=== PATIENT | female | born 1965 | race Caucasian/White ===

== ENCOUNTER 2019-12-10 05:49 | Inpatient (IN) | payer BC ==
[2019-12-10] MEDS ORDERED: CELECOXIB 200 MG CAPSULE PO ONE (06:18)
[2019-12-10] MEDS ORDERED: TRANEXAMIC ACID 1000 MG/10 ML VIAL IVPUSH ONE (06:18)
[2019-12-10] MEDS ORDERED: CEFAZOLIN 2 GM in DEXTROSE 5%-WATER - 50 ML IVPB ONE (06:18)
[2019-12-10 06:57] VITALS: BMI 25.7
[2019-12-10] MEDS ORDERED: MIDAZOLAM HCL 2 MG/2 ML SINGLE DOSE VIAL ONE ×3 (07:05→08:42)
[2019-12-10] MEDS ORDERED: DEXAMETHASONE SOD PHOSPHATE/PF 10 MG/ML SDV ONE (07:05)
[2019-12-10] MEDS ORDERED: BUPIVACAINE HCL/PF 0.5% (5 MG/ML) 30 ML VIAL IJ ONE (07:05)
[2019-12-10] MEDS ORDERED: SUCCINYLCHOLINE CHLORIDE 200 MG/10 ML SYRINGE ONE (07:15)
[2019-12-10] MEDS ORDERED: VANCOMYCIN 1,000 MG VIAL (RESTRICTED TO ID ONLY) ONE (07:17)
[2019-12-10] MEDS ORDERED: ceFAZolin SODIUM 1 GM VIAL ONE ×2 (07:17→08:18)
[2019-12-10] MEDS ORDERED: BUPIVACAINE HCL/PF 0.5% (5MG/ML) 10 ML VIAL ONE (07:22)
[2019-12-10 07:24] LABS: CALCIUM 9.4 mg/dl (8.5-10); CREATININE 0.7 mg/dl (0.55-1.3); POTASSIUM 3.9 mmol/L (3.5-5.1)
[2019-12-10] MEDS ORDERED: MAGNESIUM HYDROX 2400MG/30ML ORAL SUSPENSION 30 ML CUP PO PRN (07:50)
[2019-12-10] MEDS ORDERED: MAG HYDROX/AL HYDROX/SIMETH 30 ML UNIT-DOSE CUP PO PRN (07:50)
[2019-12-10] MEDS ORDERED: ONDANSETRON 4 MG/2 ML VIAL IVPUSH PRN (07:50)
[2019-12-10] MEDS ORDERED: EPINEPHrine/PF 1 MG/1 ML (1:1,000) AMPULE ONE (07:58)
[2019-12-10] MEDS ORDERED: LACTATED RINGERS SOLUTION 1,000 ML IV SCH (08:00)
[2019-12-10] MEDS ORDERED: DEXAMETHASONE SOD PHOSPHATE 4 MG/1 ML VIAL ONE (08:16)
[2019-12-10] MEDS ORDERED: PROPOFOL 20 ML ONE ×2 (08:26→09:03)
--- NOTE | 2019-12-10 09:33 | HP ---
Satellite [facility] - Chief Complaint Chief Complaint: left hip pain - Past Medical History Allergies/Adverse Reactions: Allergies Allergy/AdvReac Type Severity Reaction Status Date / Time No Known Allergies Allergy Verified 12/03/19 15:34 ...LMP: 12/08/19 - Current Medications Current Medications: Home Medications Medication Instructions Recorded Hydrochlorothiazide [Hctz -] 25 mg PO HS 12/03/19 Losartan Potassium 50 mg PO HS 12/03/19 Rosuvastatin [Crestor -] 10 mg PO HS 12/03/19 Magnesium Oxide [Magnesium] 400 mg PO BID 12/10/19 Potassium Chloride [K-Dur -] 20 meq PO BID 12/10/19 Satellite Physical Exam - Physical Examination Vital Signs: Vital Signs Period Temp Pulse Resp BP Sys/Brunson Pulse Ox Last 24 Hr 98.5 F 94 16 151/74 General Appearance: Well Nourished, Well Developed, Alert & Oriented x3 ENT: Clear Lung: Normal air movement Extremities: Other (left hip- + ttp, decr rom, nvi, MRI + avn) Neurological: Intact, Alert, Oriented Satellite Impression/Plan - Impression/Plan Impression: left hip avn Operative Procedure: left dion thr Date to be Performed: 12/10/19
--- NOTE | 2019-12-10 09:34 | OP ---
Operative Note - Note: Operative Date: 12/10/19 (candy) Pre-Operative Diagnosis: left hip avn Operation: left dion thr Post-Operative Diagnosis: Same as Pre-op Surgeon: Rashid Romeo Career Advisor: Jesse Valadez Anesthesiologist/ENGINE DYNAMOMETER TESTER: Oumar Waters Anesthesia: Spinal, Local Specimens Removed: femoral head Estimated Blood Loss (mls): 50
[2019-12-10] MEDS ORDERED: oxyCODONE HCL 5 MG TABLET PO PRN (10:42)
[2019-12-10] MEDS ORDERED: ACETAMINOPHEN 325 MG TABLET (FP) PO SCH (10:45)
[2019-12-10] MEDS: oxyCODONE HCL 10 MG SUSTAINED ACTING TABLET PO SCH ×2 (11:00→22:12)
[2019-12-10] MEDS: oxyCODONE HCL 5 MG TABLET PO PRN ×2 (12:31→18:30)
--- NOTE | 2019-12-10 12:31 | SPEC ---
DATE OF OPERATION: 12/10/2019 PREOPERATIVE DIAGNOSIS: Avascular necrosis, left hip. POSTOPERATIVE DIAGNOSIS: Avascular necrosis, left hip. PROCEDURE PERFORMED: Left total hip replacement with robotic-assisted navigation (MAKOplasty). SURGICAL ATTENDING: Rashid Romeo MD PRODUCT ARCHITECT: LOGAN Maguire ANESTHESIA: Regional and spinal. CLOSURE: A Nia hip system with a number 6 Accolade II femoral stem, a 48 press-fit Trident II acetabular shell, a +3 MDM head. Number 1 Vicryl for fascia, 0 and 2-0 subcutaneous, 3-0 V-Loc for skin, 4-0 undyed Vicryl for pin sites. ESTIMATED BLOOD LOSS: Less than 100 mL. COMPLICATIONS: None. CONDITION: To the recovery room in stable condition. DESCRIPTION OF PROCEDURE: The patient was taken to the operating room on December 10, 2019. General and regional anesthesia was administered by the anesthesiologist. IV Kefzol and TXA were administered prophylactically prior to the case. The patient was placed in the lateral decubitus position will all prominences well-padded. The left hip area was prepped and draped in the usual sterile fashion. Using 3 small stab incisions over the iliac crest, 3 threaded pins were drilled in power fashion through the 2 tables of the crest. These pins were fastened and the navigation array for the Germain navigation system. Next, a 12 to 15-cm curved longitudinal incision over the posterolateral aspect of the greater trochanter was incised. Hemostasis was achieved with Bovie cautery. Sharp dissection was carried down to level of the fascia. The fascia was opened the entire length of the incision, spreading the fibers of the gluteus viktor in the direction of origin. A Charnley retractor was placed in this layer. Care was taken not to impale the sciatic nerve. The short external rotators were detached off the insertion of the greater trochanter and peeled off the capsule. A posterior capsulotomy was then performed. A check point was malleted into the greater trochanter and a point on the inferior pole of the patella was obtained as well. These 2 points were used to assess the preoperative offset and limb lengths of the hip. The hip was then dislocated. The femoral neck was then osteotomized down to the appropriate level as directed by the navigation device. Anterior and posterior retractors were placed, exposing the acetabulum. A circumferential labral excision was performed. A check point was malleted into the acetabulum as well. Multiple sites inside the acetabulum and around the rim were utilized to register the acetabulum with the navigation device. An excellent registration of less than 0.5 mm was obtained. The hip was then reamed with the appropriate reamer down to the appropriate depth, with the appropriate orientation and version as assessed on our preoperative plan for this patient. The reamer was removed and the acetabulum was inspected to have good bleeding surfaces throughout. The real acetabular cup was then malleted down into place, with the holes in the appropriate position, until an excellent fixation was obtained. No screws were necessary. The navigation device ensured appropriate orientation and version, with the depth as predetermined. The appropriate liner was then clipped into place. Attention was directed to the femur. The proximal femur was prepared by use a box chisel, a canal finder and serial broaches until the broach achieved excellent rigidity in the proximal femur with the appropriate version being applied. A calcar planer was used to smooth off the calcar flush with the trial components. A trial reduction with the appropriate head was done, and the hip was reduced. The hip was taken through a range of motion from full extension with external rotation to marked flexion and was stable at 90 degrees of flexion. It was stable to marked abduction and internal rotation, with a positive hang test and negative telescoping. Limb lengths were ascertained visually as well as with the navigation device to be within the targeted range for this patient. The trial component was removed. The real component was then malleted into place. The head was cold welded to the trunnion, and the hip was reduced. Range of motion, stability and limb lengths were as described in the trial component. Then the hip was pulse antibiotic irrigated. Vancomycin powder was placed in the hip joint. The capsule was closed. The fascia was then closed as well using number 1 Vicryl interrupted suture, 0 and 2-0 subcutaneous, and 3-0 V-Loc for the skin. 4-0 undyed Vicryl was used to close the pin sites after the pins were removed. All check points were also removed. Sterile Aquacel dressing was applied. The patient was awakened from anesthesia and transferred into the supine position. Bilateral SCDs and an abduction pillow were placed. X-rays revealed excellent position of the components. The patient was transferred to the recovery room in stable condition, with no complications. Estimated blood loss was less than 100 mL. Tony [id number]
[2019-12-10] MEDS: traMADol HCL 50 MG TABLET PO PRN (13:25)
[2019-12-10] MEDS: CEFAZOLIN 2 GM/D5W 2 GM/50 ML ML IVPB SCH (16:00)
[2019-12-10] MEDS: ACETAMINOPHEN 325 MG TABLET (FP) PO SCH (18:20)
[2019-12-10] MEDS: MAGNESIUM OXIDE 400 MG TABLET (FP) PO SCH (22:11)
[2019-12-10] MEDS: POTASSIUM CHLORIDE TABS 20 MEQ TABLET.ER (FP) PO SCH (22:11)
[2019-12-10] MEDS: ROSUVASTATIN CA 10 MG TABLET (FP) PO SCH ×2 (22:12→22:19)
[2019-12-10] MEDS: SENNOSIDES/DOCUSATE COMBO (SENNA PLUS) TABLET (UD) PO SCH (22:12)
[2019-12-10] MEDS: LOSARTAN POTASSIUM 50 MG TABLET (FP) PO SCH ×2 (22:12→22:19)
[2019-12-10] MEDS: HYDROCHLOROTHIAZIDE 25 MG TABLET (FP) PO SCH ×2 (22:12→22:17)
[2019-12-11] MEDS: CEFAZOLIN 2 GM/D5W 2 GM/50 ML ML IVPB SCH (00:05)
[2019-12-11] MEDS: ACETAMINOPHEN 325 MG TABLET (FP) PO SCH ×4 (00:15→21:39)
[2019-12-11] MEDS: traMADol HCL 50 MG TABLET PO PRN ×2 (00:16→12:30)
[2019-12-11] MEDS: oxyCODONE HCL 5 MG TABLET PO PRN ×3 (06:32→16:26)
[2019-12-11] MEDS: ASPIRIN 325 MG TABLET PO SCH (08:00)
[2019-12-11 08:39] LABS: HEMATOCRIT 34.7 % (32.4-45.2); HEMOGLOBIN 12.1 GM/dl (10.7-15.3); MCH 33.8 pg (25.7-33.7); MCHC 34.9 g/dl (32.0-36.0); MEAN PLT VOLUME 7.8 fl (7.5-11.1); PLATELET COUNT 227 K/MM3 (134-434); RBC 3.57 M/mm3 (3.60-5.2); RDW 12.4 % (11.6-15.6)
[2019-12-11] MEDS: PANTOPRAZOLE 40 MG TABLET (FP) PO SCH (10:00)
[2019-12-11] MEDS: SENNOSIDES/DOCUSATE COMBO (SENNA PLUS) TABLET (UD) PO SCH ×2 (10:00→21:38)
[2019-12-11] MEDS: MAGNESIUM OXIDE 400 MG TABLET (FP) PO SCH ×2 (10:00→21:38)
[2019-12-11] MEDS: oxyCODONE HCL 10 MG SUSTAINED ACTING TABLET PO SCH ×2 (10:00→21:38)
[2019-12-11] MEDS: MULTIVITAMINS (DAILY MVI) TABLET (FP) PO SCH (10:00)
[2019-12-11] MEDS: POTASSIUM CHLORIDE TABS 20 MEQ TABLET.ER (FP) PO SCH ×2 (10:30→21:37)
[2019-12-11] MEDS: LOSARTAN POTASSIUM 50 MG TABLET (FP) PO SCH ×2 (21:39→22:03)
[2019-12-11] MEDS: HYDROCHLOROTHIAZIDE 25 MG TABLET (FP) PO SCH ×2 (21:40→22:03)
[2019-12-11] MEDS: ROSUVASTATIN CA 10 MG TABLET (FP) PO SCH (21:40)
[2019-12-12] MEDS: ACETAMINOPHEN 325 MG TABLET (FP) PO SCH ×2 (03:17→05:42)
[2019-12-12] MEDS: oxyCODONE HCL 5 MG TABLET PO PRN ×2 (05:42→09:35)
[2019-12-12] MEDS: ASPIRIN 325 MG TABLET PO SCH (08:42)
[2019-12-12] MEDS: traMADol HCL 50 MG TABLET PO PRN (08:43)
[2019-12-12 09:09] VITALS: BP 110/60; PULSE 83; TEMP 98.7
[2019-12-12] MEDS: POTASSIUM CHLORIDE TABS 20 MEQ TABLET.ER (FP) PO SCH (09:31)
[2019-12-12] MEDS: PANTOPRAZOLE 40 MG TABLET (FP) PO SCH (09:33)
[2019-12-12] MEDS: MAGNESIUM OXIDE 400 MG TABLET (FP) PO SCH (09:33)
[2019-12-12] MEDS: SENNOSIDES/DOCUSATE COMBO (SENNA PLUS) TABLET (UD) PO SCH (09:33)
[2019-12-12] MEDS: oxyCODONE HCL 10 MG SUSTAINED ACTING TABLET PO SCH (09:34)
[2019-12-12] MEDS: MULTIVITAMINS (DAILY MVI) TABLET (FP) PO SCH (09:34)
[2019-12-12 10:06] LABS: HEMATOCRIT 33.4 % (32.4-45.2); HEMOGLOBIN 11.7 GM/dl (10.7-15.3); MCH 34.2 pg (25.7-33.7); MEAN CELL VOLUME 97.6 fl (80-96); MEAN PLT VOLUME 7.5 fl (7.5-11.1); PLATELET COUNT 223 K/MM3 (134-434); RBC 3.43 M/mm3 (3.60-5.2); RDW 12.4 % (11.6-15.6)
--- NOTE | 2019-12-14 15:04 | PATH ---
Surgical Pathology Report Patient Name: RANDALL BOWDEN Med. Rec. #: [id number] /Age/Gender: 1965 (Age: 54) / F Account: [id number] Location: [facility] Taken: 12/10/2019 Received: 12/10/2019 Reported: 12/14/2019 Physicians: Rashid Romeo M.D. Specimen(s) Received LEFT FEMORAL HEAD Clinical History Left hip osteoarthritis Final Diagnosis BONE AND SOFT TISSUE, LEFT HIP, REPLACEMENT: DEGENERATIVE JOINT DISEASE. Electronically Signed Salvador Nunez M.D. Gross Description Received in formalin, labeled "left femoral head," is a 4.0 x 4.0 x 3.6 cm. femoral head with a 1.1 cm in length portion of femoral neck attached. The margin of resection is smooth. No areas of eburnation are identified. The articular surface is upton and focally granular. The underlying trabecular bone is yellow and hard. A aircraft sales representative section is submitted in one cassette, following decalcification. 12/13/[facility]
== END 2019-12-12 10:58 | disposition home health service (06) | DRG 470 ==
LOC: FM/S 05:49
PROVIDERS: ADMIT Orthopaedic Surgery; ATTEND Orthopaedic Surgery
PROC: 8E0W0CZ Robotic Assisted Procedure of Trunk Region, Open Approach (ICD-10-PCS; 2019-12-10)
PROC: 0SRB0JA Replacement of Left Hip Joint with Synthetic Substitute, Uncemented, Open Approach (ICD-10-PCS; principal; 2019-12-10 08:35)
DX: M87.852 Other osteonecrosis, left femur (principal)
CPT/HCPCS: 36415; 73502-TC-LT-FY; 80048; 81025; 85027; 88304-TC; 88311-TC; 94760; 97116-GP; 97162-GP

== ENCOUNTER 2020-05-30 05:54 | Inpatient (IN) | payer BC ==
[2020-05-22 12:59] VITALS: BMI 26.6
[2020-05-30] MEDS ORDERED: TRANEXAMIC ACID 1000 MG/10 ML VIAL IVPUSH ONE (06:17)
[2020-05-30] MEDS ORDERED: CELECOXIB 200 MG CAPSULE PO ONE (06:17)
[2020-05-30] MEDS ORDERED: CEFAZOLIN 2 GM in DEXTROSE 5%-WATER - 50 ML IVPB ONE (06:17)
[2020-05-30] MEDS ORDERED: MIDAZOLAM HCL 2 MG/2 ML SINGLE DOSE VIAL ONE ×3 (06:50→08:14)
[2020-05-30] MEDS ORDERED: ROPIVACAINE HCL 0.5% 30ML VIAL ONE (06:50)
[2020-05-30] MEDS ORDERED: ceFAZolin SODIUM 1 GM VIAL ONE ×2 (07:20→08:49)
[2020-05-30] MEDS ORDERED: VANCOMYCIN 1,000 MG VIAL (RESTRICTED TO ID ONLY) ONE (07:20)
[2020-05-30] MEDS ORDERED: PROPOFOL 20 ML ONE ×3 (07:25→09:06)
[2020-05-30] MEDS ORDERED: SUCCINYLCHOLINE CHLORIDE 200 MG/10 ML SYRINGE ONE (07:30)
[2020-05-30] MEDS ORDERED: ePHEDrine SULFATE 50 MG/1 ML AMPULE ONE (07:30)
[2020-05-30] MEDS ORDERED: MAGNESIUM HYDROX 2400MG/30ML ORAL SUSPENSION 30 ML CUP PO PRN (07:55)
[2020-05-30] MEDS ORDERED: ONDANSETRON 4 MG/2 ML VIAL IVPUSH PRN ×2 (07:55→09:44)
[2020-05-30] MEDS ORDERED: MAG HYDROX/AL HYDROX/SIMETH 30 ML UNIT-DOSE CUP PO PRN (07:55)
--- NOTE | 2020-05-30 07:58 | HP ---
Satellite [facility] - Chief Complaint Chief Complaint: right hip pain - Past Medical History Allergies/Adverse Reactions: Allergies Allergy/AdvReac Type Severity Reaction Status Date / Time No Known Allergies Allergy Verified 12/03/19 15:34 ...LMP: 12/08/19 - Current Medications Current Medications: Home Medications Medication Instructions Recorded Hydrochlorothiazide [Hctz -] 25 mg PO HS 12/03/19 Losartan Potassium 50 mg PO HS 12/03/19 Rosuvastatin [Crestor -] 10 mg PO HS 12/03/19 Magnesium Oxide [Magnesium] 400 mg PO DAILY 12/10/19 Satellite Physical Exam - Physical Examination Vital Signs: Vital Signs Period Temp Pulse Resp BP Sys/Brunson Pulse Ox Last 24 Hr 98.5 F 88 18 128/69 General Appearance: Well Nourished, Well Developed, Alert & Oriented x3 ENT: Clear Lung: Normal air movement Extremities: Other (right hip- + ttp, decr rom, nvi, xrays/MRI shows avn right femoral head) Neurological: Intact, Alert, Oriented Satellite Impression/Plan - Impression/Plan Impression: right hip avn Operative Procedure: right dion thr Date to be Performed: 05/30/20
[2020-05-30] MEDS ORDERED: LACTATED RINGERS SOLUTION 1,000 ML IV SCH (08:00)
[2020-05-30] MEDS ORDERED: BUPIVACAINE HCL/PF 0.5% (5MG/ML) 10 ML VIAL ONE (08:06)
[2020-05-30] MEDS ORDERED: SODIUM CHLORIDE 0.9% P/F 10 ML VIAL IJ ONE ×2 (08:46→08:49)
[2020-05-30] MEDS ORDERED: TRANEXAMIC ACID 1000 MG/10 ML VIAL ONE (08:49)
[2020-05-30] MEDS ORDERED: PHENYLEPHRINE HCL 10 MG/1 ML SINGLE DOSE VIAL ONE (08:49)
[2020-05-30] MEDS ORDERED: VANCOMYCIN 1,000 MG VIAL (RESTRICTED TO ID ONLY) IVPB ONE (09:18)
--- NOTE | 2020-05-30 09:41 | OP ---
Operative Note - Note: Operative Date: 05/30/20 (candy) Pre-Operative Diagnosis: right hip avn Operation: right dion thr Post-Operative Diagnosis: Same as Pre-op Surgeon: Rashid Romeo Chief Controller: Jesse Valadez Anesthesiologist/JUVENILE DETENTION OFFICER: Sandip Gerber Anesthesia: Spinal, Local Specimens Removed: femoral head Estimated Blood Loss (mls): 100
[2020-05-30] MEDS ORDERED: oxyCODONE HCL 5 MG TABLET PO PRN (09:44)
[2020-05-30] MEDS ORDERED: PROMETHAZINE HCL 25 MG/1 ML VIAL ONE (10:26)
[2020-05-30] MEDS: PROMETHAZINE HCL 25 MG/1 ML VIAL IVPUSH PRN ×2 (10:29→10:53)
[2020-05-30] MEDS ORDERED: ACETAMINOPHEN 325 MG TABLET (FP) PO SCH (10:30)
[2020-05-30] MEDS ORDERED: ACETAMINOPHEN 1000 MG/100 ML VIAL (NON FORMULARY) IVPB ONE (12:00)
[2020-05-30] MEDS: oxyCODONE HCL 5 MG TABLET PO PRN ×3 (14:39→23:22)
[2020-05-30] MEDS: CEFAZOLIN 2 GM/D5W 2 GM/50 ML ML IVPB SCH ×2 (16:21→23:22)
[2020-05-30] MEDS: PANTOPRAZOLE 40 MG TABLET PO SCH (16:59)
[2020-05-30] MEDS: ACETAMINOPHEN 325 MG TABLET (FP) PO SCH ×2 (17:52→23:22)
--- NOTE | 2020-05-30 19:30 | OP ---
DATE OF OPERATION: 05/30/2020 PREOPERATIVE DIAGNOSIS: Degenerative joint disease right hip. POSTOPERATIVE DIAGNOSIS: Degenerative joint disease right hip. PROCEDURE PERFORMED: Right total hip replacement with robotic-assisted navigation (MAKOplasty). SURGICAL ATTENDING: Rashid Romeo MD HEAVY DUTY CUSTODIAN: LOGAN Maguire ANESTHESIA: Regional and spinal. CLOSURE: An Accolade II number 4 stem with a 50 titanium press-fit acetabulum, with a standard MDM head. Number 1 Vicryl for fascia, 0 and 2-0 subcutaneous, 3-0 V-Loc for skin with skin glue, 4-0 undyed Vicryl for pin sites. ESTIMATED BLOOD LOSS: Approximately 100 mL. COMPLICATIONS: None. CONDITION: To the recovery room in stable condition. DESCRIPTION OF PROCEDURE: The patient was taken to the operating room on May 30, 2020, General and regional anesthesia was administered by the anesthesiologist. IV Kefzol and TXA were administered prophylactically prior to the case. The patient was placed in the lateral decubitus position will all prominences well-padded. The right hip area was prepped and draped in the usual sterile fashion. Using 3 small stab incisions over the iliac crest, 3 threaded pins were drilled in power fashion through the 2 tables of the crest. These pins were fastened and the navigation array for the Germain navigation system. Next, a 12 to 15-cm curved longitudinal incision over the posterolateral aspect of the greater trochanter was incised. Hemostasis was achieved with Bovie cautery. Sharp dissection was carried down to level of the fascia. The fascia was opened the entire length of the incision, spreading the fibers of the gluteus viktor in the direction of origin. A Charnley retractor was placed in this layer. Care was taken not to impale the sciatic nerve. The short external rotators were detached off the insertion of the greater trochanter and peeled off the capsule. A posterior capsulotomy was then performed. A check point was malleted into the greater trochanter and a point on the inferior pole of the patella was obtained as well. These 2 points were used to assess the preoperative offset and limb lengths of the hip. The hip was then dislocated. The femoral neck was then osteotomized down to the appropriate level as directed by the navigation device. Anterior and posterior retractors were placed, exposing the acetabulum. A circumferential labral excision was performed. A check point was malleted into the acetabulum as well. Multiple sites inside the acetabulum and around the rim were utilized to register the acetabulum with the navigation device. An excellent registration of less than 0.5 mm was obtained. The hip was then reamed with the appropriate reamer down to the appropriate depth, with the appropriate orientation and version as assessed on our preoperative plan for this patient. The reamer was removed and the acetabulum was inspected to have good bleeding surfaces throughout. The real acetabular cup was then malleted down into place, with the holes in the appropriate position, until an excellent fixation was obtained. No screws were necessary. The navigation device ensured appropriate orientation and version, with the depth as predetermined. The appropriate liner was then clipped into place. Attention was directed to the femur. The proximal femur was prepared by use a box chisel, a canal finder and serial broaches until the broach achieved excellent rigidity in the proximal femur with the appropriate version being applied. A calcar planer was used to smooth off the calcar flush with the trial components. A trial reduction with the appropriate head was done, and the hip was reduced. The hip was taken through a range of motion from full extension with external rotation to marked flexion, and was stable at 90 degrees of flexion. It was stable to marked abduction and internal rotation, with a positive hang test and negative telescoping. Limb lengths were ascertained visually as well as with the navigation device to be within the targeted range for this patient. The trial component was removed. The real component was then malleted into place. The head was cold welded to the trunnion, and the hip was reduced. Range of motion, stability and limb lengths were as described in the trial component. Then the hip was pulse antibiotic irrigated. Vancomycin powder was placed in the hip joint. The capsule was closed. The fascia was then closed as well using number 1 Vicryl interrupted suture, 0 and 2-0 subcutaneous, and 3-0 V-Loc for the skin. 4-0 undyed Vicryl was used to close the pin sites after the pins were removed. All check points were also removed. Sterile Aquacel dressing was applied. The patient was awakened from anesthesia and transferred into the supine position. Bilateral SCDs and an abduction pillow were placed. X-rays revealed excellent position of the components. The patient was transferred to the recovery room in stable condition, with no complications. Estimated blood loss was less than 100 mL. Tony [id number]
[2020-05-30] MEDS: SENNOSIDES/DOCUSATE COMBO (SENNA PLUS) TABLET (UD) PO SCH (21:23)
[2020-05-30] MEDS: HYDROCHLOROTHIAZIDE 25 MG TABLET (FP) PO SCH (21:23)
[2020-05-30] MEDS: ROSUVASTATIN CA 10 MG TABLET (FP) PO SCH (21:23)
[2020-05-30] MEDS: LOSARTAN POTASSIUM 50 MG TABLET (FP) PO SCH (21:23)
[2020-05-30] MEDS: oxyCODONE HCL 10 MG SUSTAINED ACTING TABLET PO SCH (21:23)
[2020-05-31] MEDS: ACETAMINOPHEN 325 MG TABLET (FP) PO SCH ×3 (05:59→18:01)
[2020-05-31] MEDS: oxyCODONE HCL 5 MG TABLET PO PRN ×4 (06:00→20:15)
[2020-05-31 08:42] LABS: HEMATOCRIT 38.5 % (32.4-45.2); HEMOGLOBIN 13.1 GM/dl (10.7-15.3); MCH 32.5 pg (25.7-33.7); MCHC 34.1 g/dl (32.0-36.0); MEAN CELL VOLUME 95.3 fl (80-96); MEAN PLT VOLUME 7.1 fl (7.5-11.1); PLATELET COUNT 230 K/MM3 (134-434); RBC 4.04 M/mm3 (3.60-5.2); WHITE BLOOD COUNT 9.3 K/mm3 (4.0-10.8)
[2020-05-31] MEDS: SENNOSIDES/DOCUSATE COMBO (SENNA PLUS) TABLET (UD) PO SCH ×2 (09:02→22:17)
[2020-05-31] MEDS: PANTOPRAZOLE 40 MG TABLET PO SCH (09:02)
[2020-05-31] MEDS: MULTIVITAMINS (DAILY MVI) TABLET (FP) PO SCH (09:02)
[2020-05-31] MEDS: oxyCODONE HCL 10 MG SUSTAINED ACTING TABLET PO SCH ×2 (09:02→22:17)
[2020-05-31] MEDS: ASPIRIN 325 MG TABLET PO SCH (09:02)
--- NOTE | 2020-05-31 09:29 | PN ---
Progress Note (short form) - Note Progress Note: Ortho Pt seen and examined s/p right dion thr pod #1 Selected Entries 05/31/20 05:00 Temperature 98.1 F Pulse Rate 62 Respiratory 19 Rate Blood Pressure 125/77 Laboratory Tests 05/31/20 08:23 WBC 9.3 Hgb 13.1 Hct 38.5 D Plt Count 230 dressing c/d/i, calf soft, nt nvi a/p PT hip precautions dvt ppx pain control d/c home today/tomorrow
--- NOTE | 2020-05-31 09:38 | OP ---
DATE OF OPERATION: 05/30/2020 PREOPERATIVE DIAGNOSIS: Avascular necrosis, right hip. POSTOPERATIVE DIAGNOSIS: Avascular necrosis, right hip. PROCEDURE: Right total hip replacement with robotic-assisted navigation (JUANA plasty). SURGICAL ATTENDING: Severo Romeo MD SHAPER SETTER: LOGAN Maguire ANESTHESIA: Regional and spinal. CLOSURE: Nia Press-Fit hip system with a 48 press-fit Trident II acetabulum, a number 6 Accolade II Press-Fit femoral stem, a standard MDM head and liner. No. 1 Vicryl fascia, 0 and 2-0 subcutaneous, 3-0 V-Loc subcuticular for skin with skin glue, 4-0 undyed Vicryl for pin sites. ESTIMATED BLOOD LOSS: Less than 100 mL. COMPLICATIONS: None. CONDITION: To recovery room in stable condition. INDICATION FOR OPERATIVE PROCEDURE: Patient was diagnosed as having avascular necrosis of bilateral hips over a year ago. After failing conservative measures, she had a left total hip replacement performed approximately 6-8 months ago. She was doing quite well with that. Our only issue was a slight limb length discrepancy, but her right hip persistently and consistently was hurting her, and it got progressively worse to the point that she wanted to have a right total hip replacement. Risks, benefits, and alternatives were gone over with her in great detail, including but not limited to the attempt to try to even out her limb lengths. She was unhappy with the left side being longer than the right, and she felt that that was hampering her efforts. I informed her that I will attempt to get the limb lengths exactly the same, but there is no guarantee for that. I went through all the other usual risks, benefits, and alternatives with her prior to the procedure. DESCRIPTION OF PROCEDURE: Patient was taken to the operating room on May 30, 2020. Regional and spinal anesthesia was administered by the anesthesiologist. IV Kefzol and TXA were administered prophylactically prior to the case. Patient was placed in the lateral decubitus position with all prominences well padded. The right hip area was prepped and draped in the usual sterile fashion. Three small stab incisions were done over the iliac wing, and through these stab incisions, 3 parallel threaded pins were drilled between the 2 tables of the ilium, achieving excellent fixation. The navigation array was clamped to these pins. A 12- to 15-cm curved longitudinal incision over the posterolateral aspect of the right hip was incised, hemostasis achieved using Bovie cautery. Sharp dissection was carried down to the level of the fascia. The fascia was opened the entire length of the incision, spreading the gluteus viktor fibers in line with their origin. Charnley retractor was placed in this layer. Care was taken not to impale the sciatic nerve. The superior portion of the gluteus viktor insertion was cut to relieve pressure on the nerve as well. A checkpoint was malleted in the greater trochanter. The short external rotators were peeled off their insertion onto the trochanter and peeled off the capsule. At this time the checkpoint in the greater trochanter and one on the inferior pole of the patella were registered for later limb length and offset guidance. The capsule was then opened and the hip was dislocated. The femoral neck was osteotomized at the appropriate level as indicated from the navigation device. Anterior, posterior retractors were then applied. A circumferential labral debridement was performed. An acetabular checkpoint was malleted into place. The hip was then registered with the navigation device with multiple points in and around the acetabulum. Excellent registration was confirmed by "popping the bubbles." The 48 reamer was then brought in with the robot into the field and was used to ream the acetabulum down to the appropriate lengths with the appropriate orientation and version as dictated by our preoperative CAT scan and templates. After removing the reamer, a beautifully hemispherical bleeding surface of the acetabulum was obtained. A 48 Trident II acetabulum was then malleted into place with the appropriate orientation and version, getting 40 degrees of inclination and 26 degrees of version, achieving excellent fixation in the acetabulum. Next, the metal liner from the MDM was then cold welded into the acetabulum. Next, our attention was directed to the femur. Box chisel and canal finder were used to open the canal. Serial broaches starting from 0 going up to a No. 6 were used until the No. 6 achieved excellent wedge fit. Trial reduction with standard head and MDM was performed. Patient had negative telescoping, had positive stability to marked flexion, at 90 degrees was stable to marked adduction, had a positive hang test, was stable to external rotation in extension. Using the navigation, the limb lengths were judged to be spot on equal to the contralateral side (prior to the procedure, the CAT scan revealed that she was 7 mm shorter than the contralateral side. The navigation device put her at this level, being exactly equal to the contralateral side). The trial components were removed. The hip was pulse antibiotic irrigated. The real Accolade II size 6 stem was malleted into place, achieved excellent stability and fixation. Again, a trial reduction was performed which revealed identical stability and limb lengths as described earlier. The trial head was then removed and the real MDM head was cold welded to the trunnion and reduced. Range of motion and stability and limb lengths were again proven to be equal to the contralateral side and were what was described earlier. The hip was pulse antibiotic irrigated and dried. Hemostasis was obtained again. Vancomycin powder was placed into the incision. The fascia was closed using No. 1 Vicryl interrupted sutures, 0 and 2-0 for subcutaneous, and 3-0 V-Loc for skin. All checkpoints were removed. The pins were then removed from the acetabulum, and the pin sites were closed with 4-0 undyed Vicryl. Sterile pressure Aquacel dressing was applied. Patient was flipped to the supine position. X-ray showed excellent position of the components. Patient was awakened from anesthesia and transferred to recovery room in stable condition, no complications. ESTIMATED BLOOD LOSS: 100 mL or less. SEVERO ROMEO M.D. [id number]
--- NOTE | 2020-05-31 13:32 | PN ---
Progress Note (short form) - Note Progress Note: ANESTHESIA POSTOP 54 YO FEMALE POD#1 S/P HAN, SPINAL AND PNB Patient sitting in chair. No acute distress. Pain adequately controlled. Tolerating PO VSS, Afebrile Continue current care. Encouraged IS and active participation in PT. No anesthetic complications.
--- NOTE | 2020-05-31 14:13 | PATH ---
Surgical Pathology Report Patient Name: RANDALL BOWDEN Med. Rec. #: [id number] /Age/Gender: 1965 (Age: 54) / F Account: [id number] Location: [facility] Taken: 05/30/2020 Received: 05/30/2020 Reported: 05/31/2020 Physicians: Rashid Romeo M.D. Specimen(s) Received RIGHT HIP FEMORAL HEAD Clinical History Osteoarthritis right hip Final Diagnosis FEMORAL HEAD, RIGHT HIP, TOTAL HIP REPLACEMENT: DEGENERATIVE JOINT DISEASE. Electronically Signed Delma Vegrara M.D. Gross Description Received in formalin, labeled "right hip femoral head," is a 3.8 x 3.8 x 3.4 cm. femoral head with a 0.8 cm in length portion of femoral neck attached. The margin of resection is smooth. No areas of eburnation are identified. The articular surface is upton and focally granular. The underlying trabecular bone is yellow and hard. A visitor services representative section is submitted in one cassette, following decalcification. /05/30/2020 [facility]/05/30/2020
[2020-05-31] MEDS: ROSUVASTATIN CA 10 MG TABLET (FP) PO SCH (22:16)
[2020-05-31] MEDS: LOSARTAN POTASSIUM 50 MG TABLET (FP) PO SCH (22:17)
[2020-05-31] MEDS: HYDROCHLOROTHIAZIDE 25 MG TABLET (FP) PO SCH (22:17)
[2020-06-01] MEDS: ACETAMINOPHEN 325 MG TABLET (FP) PO SCH ×2 (03:07→05:17)
[2020-06-01] MEDS: oxyCODONE HCL 5 MG TABLET PO PRN ×2 (05:18→08:10)
[2020-06-01 06:01] VITALS: BP 100/60; PULSE 86; TEMP 98
[2020-06-01 07:15] LABS: HEMATOCRIT 34.2 % (32.4-45.2); MCH 32.9 pg (25.7-33.7); MCHC 35.1 g/dl (32.0-36.0); MEAN CELL VOLUME 93.7 fl (80-96); MEAN PLT VOLUME 6.2 fl (7.5-11.1); PLATELET COUNT 187 K/MM3 (134-434); RBC 3.65 M/mm3 (3.60-5.2); RDW 12.2 % (11.6-15.6); WHITE BLOOD COUNT 6.7 K/mm3 (4.0-10.8)
[2020-06-01] MEDS: ASPIRIN 325 MG TABLET PO SCH (07:57)
--- NOTE | 2020-06-01 08:11 | PN ---
Progress Note (short form) - Note Progress Note: Ortho Pt seen and examined s/p right dion thr pod #2 Selected Entries 06/01/20 06:00 Temperature 98.0 F Pulse Rate 86 Respiratory 18 Rate Blood Pressure 100/60 Laboratory Tests 06/01/20 07:08 WBC 6.7 Hgb 12.0 Hct 34.2 Plt Count 187 dressing c/d/i, calf soft, nt nvi a/p PT hip precautions dvt ppx pain control d/c home today f/u in 1 week
--- NOTE | 2020-06-01 08:11 | DS ---
Physical Examination Vital Signs: Vital Signs Temperature 98.0 F 06/01/20 06:00 Pulse Rate 86 06/01/20 06:00 Respiratory Rate 18 06/01/20 06:00 Blood Pressure 100/60 06/01/20 06:00 O2 Sat by Pulse Oximetry (%) 98 06/01/20 05:59 Labs: CBC, BMP 06/01/20 07:08 Discharge Summary Problems reviewed: Yes Reason For Visit: OSTEOARTHRITIS Procedures: Principal: right thr Hospital Course: admitted for elective right dion thr, post-op per protocol, stable for d/c Condition: Good - Instructions Diet, Activity, Other Instructions: Post-op Instructions-Total Hip Replacement Call the office for a follow-up appointment in 1 week - [phone] Aspirin 325mg daily for 6 weeks. Pain medication was sent into your pharmacy. Apply Graduated Compression Stockings (TEDs) to both lower extremities- remove daily for hygiene ONLY Apply Sequential Compression Device (SCDs) to both Lower extremities remove for PT and hygiene ONLY Apply cold packs to affected area for 15 minutes every 2 hours. Physical Therapist will come to your home for the first 5 days. You will be set up with outpatient PT at your first post-operative visit. Patient may ambulate as tolerated-encourage self care (at least every 2-3 hours while awake) with walker or cane Maintain Aquacel (waterproof) dressing to operative wound (will be removed by surgeon at first office visit) Shower with Aquacel dressing in place-if Aquacel integrity compromised, remove and apply dry sterile dressing and notify Orthopedist. DO NOT SHOWER unless Orthopedists approves without Aquacel dressing CONTACT THE OFFICE FOR ANY CHANGE IN YOUR CONDITION (for example-fever greater than 102 degrees, excessive bleeding from operative site, purulent drainage, severe swelling or pain) GO TO THE EMERGENCY ROOM IF THERE IS A MEDICAL EMERGENCY Hip Precautions: * Keep a rolled towel under affected heel while in bed or chair (to keep knee in extension) * Dependent upon approach: * Posterior - do not cross legs; do not sit on low chairs or toilets . * If you have any questions, please do not hesitate to call the office - [phone]. Referrals: Rashid Romeo MD [Staff Physician] - Disposition: [facility]/HOME HEALTH CARE - Home Medications Comprehensive Discharge Medication List: Ambulatory Orders Hydrochlorothiazide [Hctz -] 25 mg PO HS 12/03/19 Losartan Potassium 50 mg PO HS 12/03/19 Rosuvastatin [Crestor -] 10 mg PO HS 12/03/19 Magnesium Oxide [Magnesium] 400 mg PO DAILY 12/10/19 Aspirin [ASA -] 325 mg PO DAILY@0800 tablet 05/30/20 Oxycodone HCl/Acetaminophen [Percocet 5-325 mg Tablet -] 1 - 2 tab PO Q6H #50 tab MDD 8 05/30/20
[2020-06-01] MEDS: oxyCODONE HCL 10 MG SUSTAINED ACTING TABLET PO SCH (09:25)
[2020-06-01] MEDS: MULTIVITAMINS (DAILY MVI) TABLET (FP) PO SCH (09:25)
[2020-06-01] MEDS: PANTOPRAZOLE 40 MG TABLET PO SCH (09:26)
[2020-06-01] MEDS: SENNOSIDES/DOCUSATE COMBO (SENNA PLUS) TABLET (UD) PO SCH (09:26)
== END 2020-06-01 11:54 | disposition home health service (06) | DRG 470 ==
LOC: FM/S 05:54
PROVIDERS: ADMIT Orthopaedic Surgery; ATTEND Orthopaedic Surgery
PROC: 8E0Y0CZ Robotic Assisted Procedure of Lower Extremity, Open Approach (ICD-10-PCS; 2020-05-30)
PROC: 0SR90JZ Replacement of Right Hip Joint with Synthetic Substitute, Open Approach (ICD-10-PCS; principal; 2020-05-30 08:33)
DX: M87.851 Other osteonecrosis, right femur (principal)
CPT/HCPCS: 36415; 73502-TC-RT-FY; 81025; 85027; 88305-TC; 88311-TC; 94760; 97010-GP; 97116-GP; 97162-GP; J0131

== ENCOUNTER 2021-07-18 04:55 | Day surgery (SDC) | payer BC ==
[2021-07-17 11:58] VITALS: BMI 27.4
[2021-07-18 11:23] VITALS: TEMP 97.4
[2021-07-18 12:23] VITALS: BP 134/75; PULSE 63
== END 2021-07-18 12:24 | disposition home or self-care (01) ==
LOC: JASU-ENDO 04:55
PROVIDERS: ATTEND Internal Medicine Gastroenterology
PROC: 0DBK8ZX Excision of Ascending Colon, Via Natural or Artificial Opening Endoscopic, Diagnostic (ICD-10-PCS; 2021-07-18)
PROC: 0DB98ZX Excision of Duodenum, Via Natural or Artificial Opening Endoscopic, Diagnostic (ICD-10-PCS; 2021-07-18)
PROC: 0DB68ZX Excision of Stomach, Via Natural or Artificial Opening Endoscopic, Diagnostic (ICD-10-PCS; 2021-07-18)
PROC: 0DB48ZX Excision of Esophagogastric Junction, Via Natural or Artificial Opening Endoscopic, Diagnostic (ICD-10-PCS; 2021-07-18)
PROC: 0DBL8ZX Excision of Transverse Colon, Via Natural or Artificial Opening Endoscopic, Diagnostic (ICD-10-PCS; principal; 2021-07-18 10:00)
DX: Z12.11 Encounter for screening for malignant neoplasm of colon (principal); Z83.71 Family history of colonic polyps; K57.30 Diverticulosis of large intestine without perforation or abscess without bleeding; K64.8 Other hemorrhoids; D12.2 Benign neoplasm of ascending colon; D12.3 Benign neoplasm of transverse colon; K29.80 Duodenitis without bleeding; K29.50 Unspecified chronic gastritis without bleeding; K44.9 Diaphragmatic hernia without obstruction or gangrene; K21.00 Gastro-esophageal reflux disease with esophagitis, without bleeding

== ENCOUNTER 2021-09-21 04:22 | Day surgery (SDC) | payer BC ==
[2021-09-21] MEDS ORDERED: TRIAMCINOLONE ACET 40MG/1ML VIAL ONE (07:19)
[2021-09-21] MEDS ORDERED: LIDOCAINE HCL/PF 1% SDV 5ML VIAL ONE (07:19)
[2021-09-21 08:31] VITALS: PULSE 64
[2021-09-21] MEDS ORDERED: IOHEXOL 180 MG/1 ML ML IJ ONE ×2 (08:56)
[2021-09-21] MEDS ORDERED: LIDOCAINE 1% P/F 10 MG/ML VIAL INF ONE (08:56)
[2021-09-21] MEDS ORDERED: BUPIVACAINE HCL/PF 0.5% (5MG/ML) 10 ML VIAL IJ ONE (08:56)
[2021-09-21] MEDS ORDERED: TRIAMCINOLONE ACETONIDE 40 MG/ML 10 ML VIAL IJ ONE (08:56)
[2021-09-21 09:33] VITALS: BP 125/60; TEMP 98
== END 2021-09-21 09:25 | disposition home or self-care (01) ==
LOC: JASU-SURG 04:22
PROVIDERS: ATTEND Pain Medicine Pain Medicine
PROC: 3E0U3BZ Introduction of Anesthetic Agent into Joints, Percutaneous Approach (ICD-10-PCS; 2021-09-21)
PROC: 3E0U33Z Introduction of Anti-inflammatory into Joints, Percutaneous Approach (ICD-10-PCS; principal; 2021-09-21 08:54)
DX: M53.3 Sacrococcygeal disorders, not elsewhere classified (principal)
CPT/HCPCS: 76000-TC-FY

== ENCOUNTER → 2021-10-18 | Day surgery (SDC) | payer BC | END | disposition home or self-care (01) | LOC: JRADIR 07:16 | PROVIDERS: ATTEND Internal Medicine Endocrinology, Diabetes & Metabolism | PROC: 0G9G3ZX Drainage of Left Thyroid Gland Lobe, Percutaneous Approach, Diagnostic (ICD-10-PCS; principal; 2021-10-18) | DX: E04.1 Nontoxic single thyroid nodule (principal) | CPT/HCPCS: 10005; 76942; 88173; 88305-TC ==

== ENCOUNTER → 2021-11-01 | Day surgery (SDC) | payer BC | END | disposition home or self-care (01) | LOC: JRADIR 09:43 | PROVIDERS: ATTEND Internal Medicine Endocrinology, Diabetes & Metabolism | PROC: 0G9K3ZX Drainage of Thyroid Gland, Percutaneous Approach, Diagnostic (ICD-10-PCS; principal; 2021-11-01) | DX: E04.1 Nontoxic single thyroid nodule (principal) | CPT/HCPCS: 10005; 76942; 88173; 88305-TC ==

== ENCOUNTER 2022-02-26 09:48 | Emergency (ER) | payer BC ==
[2022-02-26 10:06] VITALS: BMI 26.5
[2022-02-26] MEDS ORDERED: BEBTELOVIMAB (EUA) 175 MG/2 ML VIAL IVPUSH ONE (10:08)
[2022-02-26] MEDS ORDERED: DEXAMETHASONE SOD PHOSPHATE 10 MG/1 ML VIAL PO ONE (10:43)
[2022-02-26] MEDS ORDERED: DEXAMETHASONE SOD PHOSPHATE 10 MG/1 ML VIAL ONE (11:17)
[2022-02-26 11:55] VITALS: BP 123/76; PULSE 78; TEMP 98.7
== END 2022-02-26 13:03 | disposition home or self-care (01) ==
LOC: JER 09:48
PROC: 3E033GC Introduction of Other Therapeutic Substance into Peripheral Vein, Percutaneous Approach (ICD-10-PCS; principal; 2022-02-26)
DX: U07.1 COVID-19 (principal)
CPT/HCPCS: 99284-25; J1100